=== PATIENT | male | born 1950 | race Hispanic/Latino ===

== ENCOUNTER → 2019-05-09 | Outpatient (CLI) | payer MEDICARE, OTHER ==
[~2019-05-09] MED LIST: CRESTOR PO; CRESTOR10 MG PO; GLIMEPIRIDE4 MG PO; JANUMET XR 1001 EACH PO; LOSARTAN POTAS100 MG PO; SYNTHROID100 MCG PO; TAMSULOSIN HCL0.4 MG PO
--- NOTE | 2019-05-09 11:47 | Diagnostic Imaging Report ---
MRI of the right shoulder without contrast. History: Shoulder pain. Decreased range of motion. Rotator cuff tear. Comparison: None Technique: Coronal PD FS, sagital PD FS, and axial PD and PD FS. Findings: Rotator cuff: Rotator cuff tendinosis with midsubstance degeneration and articular sided partial tearing involving the anterior fibers of the supraspinatus and infraspinatus tendons at the humeral insertion site. This is best seen on coronal image 13 through 18. Additionally, there is subscapularis tendinosis. The teres minor tendon is intact. There is mild rotator cuff muscle atrophy. Osseous acromion complex: Type II acromion with mild lateral downsloping. Moderate degenerative arthrosis at the acromioclavicular joint with undersurface spurring and narrowing of the supraspinatus tendon outlet. Glenohumeral joint: Circumferential degenerative type tearing of the labrum. Regions of full-thickness articular cartilage loss in the glenohumeral joint with joint space narrowing, subchondral cystic change and peripheral osteophytosis. Chronic appearing deformity with remodeling of the posterior glenoid best seen on axial image 15 through 17 and sagittal image 18 and 19. The humeral head is well-seated in the glenoid fossa. Small effusion and mild synovitis in the rotator interval and subcoracoid space. Scarring and thickening in the axillary pouch with increased signal intensity could be due to adhesive capsulitis or a capsular sprain. Biceps tendon: Interarticular biceps tendinosis with fraying of the biceps anchor. Other findings: Negative for muscle denervation or acute osseous fracture. Impression: Rotator cuff tendinosis with midsubstance degeneration and articular sided partial tearing involving the anterior fibers of the supraspinatus and infraspinatus tendons at the humeral insertion site. Scarring and thickening in the axillary pouch with increased signal intensity could be due to adhesive capsulitis or a capsular sprain. Degenerative arthrosis of the glenohumeral joint with chronic appearing deformity and remodeling of the posterior glenoid. Signed by: Dr. Markus Dubon M.D. on 05/09/2019 11:44 AM
== END ==
LOC: MRI 09:42
PROVIDERS: ATTEND Specialist
DX: S46.091A Other injury of muscle(s) and tendon(s) of the rotator cuff of right shoulder, initial encounter (principal)

== ENCOUNTER → 2019-06-07 | Day surgery (SDC) | payer MEDICARE, OTHER ==
[2019-06-01 15:14] LABS: BASOPHILS % 0.5 % (0.0-1.0); EOSINOPHILS # (AUTO) 0.1 (0.0-0.4); EOSINOPHILS % 1.9 % (0.0-6.0); HEMATOCRIT 44.8 % (38.2-49.6); HEMOGLOBIN 14.3 g/dL (14.0-18.0); LYMPHOCYTES # (AUTO) 1.8 (1.0-3.2); LYMPHOCYTES % 24.2 % (18.0-39.1); MEAN CORPUSCULAR HEMOGLOBIN 29.4 pg (28-32); MEAN CORPUSCULAR HGB CONC 31.9 g/dL (31-35); MEAN CORPUSCULAR VOLUME 92.2 fL (81-99); MONOCYTES # (AUTO) 0.6 (0.2-0.8); MONOCYTES % 8.3 % (4.4-11.3); NEUTROPHILS # (AUTO) 4.7 (2.1-6.9); NEUTROPHILS % 64.7 % (38.7-80.0); PLATELET COUNT 154 x10e3/uL (140-360); RED BLOOD COUNT 4.86 x10e6/uL (4.3-5.7); RED CELL DISTRIBUTION WIDTH 14.1 % (11.7-14.4)
--- NOTE | 2019-06-01 15:25 | Diagnostic Imaging Report ---
EXAMINATION: CHEST 2 VIEWS INDICATION: Pre-operative COMPARISON: None FINDINGS: LINES/TUBES:None LUNGS:The lungs are well-inflated. No focal consolidation or pulmonary edema. PLEURA:No pleural effusion or pneumothorax. MEDIASTINUM:The cardiomediastinal silhouette appears normal in size and shape. BONES/SOFT TISSUES:No acute osseous injury. ABDOMEN:No free air under the diaphragm. IMPRESSION: No focal pneumonia or pulmonary edema. Signed by: Eder Del Toro MD on 06/01/2019 3:22 PM
[2019-06-01 15:28] LABS: BLOOD UREA NITROGEN 21 mg/dL (7-26); BUN/CREATININE RATIO 22 (6-25); CALCIUM 10.1 mg/dL (8.4-10.2); CARBON DIOXIDE 25 mmol/L (22-29); CHLORIDE 103 mmol/L (98-107); CREATININE, SERUM 0.97 mg/dL (0.72-1.25); EST GLOMERULAR FILTRATION RATE > 60 ML/MIN (60-); GLUCOSE 115 mg/dL (74-118); SODIUM 137 mmol/L (136-145)
[~2019-06-07] MED LIST changes: +ACETAMINOPHEN/CODEINE 300MG - 30MG TAB ONE; +ACTOS15 MG PO; +CEFAZOLIN SOD 1 GM/NS 50ML 50 ML IV ONE; +DEXAMETHASONE SOD PHOS INJ 4 MG/ML VIAL ONE; +EPINEPHRINE HCL 1:1000 1ML 1 MG/ML AMP ONE; +FENTANYL CITRATE/PF 100MCG/2 ML INJ ONE; +HYDROGEN PEROXIDE 120 ML BTL ONE; +KETOROLAC TROMETHAMINE 30 MG/ML VIAL ONE; +LIDOCAINE 2% /EPINEPHRINE 20 ML SDV INJ ONE; +LIDOCAINE HCL 2% LOCAL INJ 5 ML SDV VIAL INJ ONE; +METHOTREXATE2.5 MG PO; +MIDAZOLAM HCL 2 MG/2 ML VIAL ONE; +ONDANSETRON HCL INJ 2MG/ML 2ML 2 MG/ML VIAL ONE; +PROPOFOL IV EMULSION 10 MG/ML 20 ML VIAL ONE; +ROCURONIUM BROMIDE 10 MG/ML 5ML VIAL ONE; +ROPIVACAINE 0.5% 5 MG/ML 30 ML SDV ONE; +SEVOFLURANE INHAL SOLN 250 ML PEN BTL ONE; +jardiance PO
--- OUTSIDE RECORDS SUMMARY | 2019-06-07 07:54 | XMS REPORT ---
Author Author [facility] Address Unknown Phone Unavailable Care Team Providers Care Basketball Player Name Role Phone SHUALEXANDER SHER Unavailable Unavailable Problems This patient has no known problems. Allergies, Adverse Reactions, Alerts This patient has no known allergies or adverse reactions. Medications This patient has no known medications. Results Test Description Test Time Test Comments Text Results Atomic Results Result Comments CHEST 2 VIEWS 2019-06-01 15:22:00 [place] [address] Patient Name: ALEXANDER GARCÍA JR MR #: [id number] : 1950 Age/Sex: 68/M Req #: [id number] Adm Physician: Ordered by: ALEXANDER IRELAND MD Report #: [id number] Location: OR Room/Bed: Procedure: [id number] DX/CHEST 2 VIEWS Exam Date: 06/01/19 Exam Time: 1505 REPORT STATUS: Signed EXAMINATION: CHEST 2 VIEWS INDICATION: Pre-operative COMPARISON: None FINDINGS: LINES/TUBES:None LUNGS:The lungs are well-inflated. No focal consolidation or pulmonary edema. PLEURA:No pleural effusion or pneumothorax. MEDIASTINUM:The cardiomediastinal silhouette appears normal in size and shape. BONES/SOFT TISSUES:No acute osseous injury. ABDOMEN:No free air under the diaphragm. IMPRESSION: No focal pneumonia or pulmonary edema. Signed by: Elise Whittington MD on 06/01/2019 3:22 PM Dictated By: ELISE WHITTINGTON MD 152 Transcribed By: BELLO DIETRICH on 06/01/19 1522 COPY TO: ALEXANDER IRELAND MD MRI SHOULDER RIGHT WO 2019-05-09 11:39:00 [place] [address] Patient Name: ALEXANDER GARCAÍ JR MR #: [id number] : 1950 Age/Sex: 68/M Req #: [id number] Adm Physician: Ordered by: ALEXANDER IRELAND MD Report #: [id number] Location: MRI Room/Bed: Procedure: [id number] MRI/MRI SHOULDER RIGHT WO Exam Date: Exam Time: REPORT STATUS: Signed MRI of the right shoulder without contrast. History: Shoulder pain. Decreased range of motion. Rotator cuff tear. Comparison: None Technique: Coronal PD FS, sagital PD FS, and axial PD and PD FS. Findings: Rotator cuff: Rotator cuff tendinosis with midsubstance degeneration and articular sided partial tearing involving the anterior fibers of the supraspinatus and infraspinatus tendons at the humeral insertion site. This is best seen on coronal image 13 through 18. Additionally, there is subscapularis tendinosis. The teres minor tendon is intact. There is mild rotator cuff muscle atrophy. Osseous acromion complex: Type II acromion with mild lateral downsloping. Moderate degenerative arthrosis at the acromioclavicular joint with undersurface spurring and narrowing of the supraspinatus tendon outlet. Glenohumeral joint: Circumferential degenerative type tearing of the labrum. Regions of full-thickness articular cartilage loss in the glenohumeral joint with joint space narrowing, subchondral cystic change and peripheral osteophytosis. Chronic appearing deformity with remodeling of the posterior glenoid best seen on axial image 15 through 17 and sagittal image 18 and 19. The humeral head is well-seated in the glenoid fossa. Small effusion and mild synovitis in the rotator interval and subcoracoid space. Scarring and thickening in the axillary pouch with increased signal intensity could be due to adhesive capsulitis or a capsular sprain. Biceps tendon: Interarticular biceps tendinosis with fraying of the biceps anchor. Other findings: Negative for muscle denervation or acute osseous fracture. Impression: Rotator cuff tendinosis with midsubstance degeneration and articular sided partial tearing involving the anterior fibers of the supraspinatus and infraspinatus tendons at the humeral insertion site. Scarring and thickening in the axillary pouch with increased signal intensity could be due to adhesive capsulitis or a capsular sprain. Degenerative arthrosis of the glenohumeral joint with chronic appearing deformity and remodeling of the posterior glenoid. Signed by: Dr. Markus Dubon M.D. on 05/09/2019 11:44 AM Dictated By: MARKUS DUBON MD, MD [id number] Transcribed By: AMARI on 05/09/19 1144 COPY TO: ALEXANDER IRELAND MD
[2019-06-07 13:30] VITALS: BP 137/72
--- NOTE | 2019-06-07 18:28 | Operative Report ---
DATE OF PROCEDURE: 06/07/2019 SURGEON: Sarabjit Ríos MD CARPET TILE LAYER: Abdulaziz Gil, certified PA. PREOPERATIVE DIAGNOSIS: Right shoulder rotator cuff tear with secondary adhesive capsulitis. POSTOPERATIVE DIAGNOSIS: Right shoulder rotator cuff tear with secondary adhesive capsulitis. PROCEDURE: Right shoulder manipulation under anesthesia, diagnostic arthroscopy, biceps tenotomy, subacromial decompression and rotator cuff repair. INDICATIONS: The patient is a 68-year-old gentleman, who has a long history of right shoulder problems. He has failed extensive conservative management under the care of other doctors. He presented wishing to proceed with more aggressive intervention. The risks and benefits of arthroscopy with repairs as indicated was explained. The fact that he has some underlying arthritic changes in his shoulder was explained. Realistic expectations were stressed. The patient stated he understood and wished to proceed. PROCEDURE IN DETAIL: The patient was brought to the operating room and placed under general anesthetic. He received prophylactic antibiotics and a regional block in the holding area. He was positioned on the shoulder table in the beach chair position. His right upper extremity was carefully manipulated when he was under anesthesia. Audible and palpable release of the inferior capsule was noted. The shoulder was then prepped and draped in a sterile manner. A standard posterior arthroscopy portal was established. The shoulder was insufflated with sterile saline and systematically inspected. Time was taken to clear the intra-articular hemarthrosis due to the manipulation under anesthesia. An anterior working portal was established in the rotator interval. The articular cartilage of the glenohumeral joint indeed had some grade 2 changes of chondromalacia. The biceps tendon was under tremendous tension as it exited the shoulder joint. A biceps tenotomy was performed with a pair of biting forceps. Marked inflammation was noted in the shoulder. This was debrided with a mechanical shaver that combined as an electrocauterize. The rotator cuff insertion was inspected. There was a near full-thickness tear at the anterior supraspinatus. After needle localization, this tear was further probed. This was noted to be about 80% of the thickness of the tendinous insertion. This was therefore completed with a pair of biting forceps. A lateral working portal allowed introduction of the shaver into the joint from the rotator cuff tear. The articular surface of the rotator cuff tear was then debrided back to more healthy tissue with a mechanical shaver. The scope was then placed into the subacromial space. A subacromial bursectomy and bone decompression were performed. The greater tuberosity was gently decorticated at the location of the tear. A FiberWire stitch was then placed in a horizontal mattress fashion through the rotator cuff tear. A bioabsorbable suture anchor was then used to secure these two stitches under tension to the superior lateral humeral cortex. Intraoperative pictures were taken throughout the case. The tendon repair was under appropriate tension with nice apposition of the tendon down to the bleeding cancellous bone. The arthroscopic instruments were removed. The portal incisions were closed with nylon stitches. A sterile bandage and an UltraSling were applied. Estimated blood loss was 10 mL. All needle and sponge counts were correct. Sarabjit Ríos MD DR/TIAN /[id number]
== END | disposition home or self-care (01) ==
LOC: OR 07:47
PROVIDERS: ATTEND Specialist
DX: S46.091A Other injury of muscle(s) and tendon(s) of the rotator cuff of right shoulder, initial encounter (principal); M75.01 Adhesive capsulitis of right shoulder; M94.211 Chondromalacia, right shoulder; E11.9 Type 2 diabetes mellitus without complications; E07.9 Disorder of thyroid, unspecified; R03.0 Elevated blood-pressure reading, without diagnosis of hypertension; X58.XXXA Exposure to other specified factors, initial encounter; Z01.810 Encounter for preprocedural cardiovascular examination; Z01.812 Encounter for preprocedural laboratory examination; Z01.818 Encounter for other preprocedural examination; Z79.84 Long term (current) use of oral hypoglycemic drugs; Z68.32 Body mass index [BMI] 32.0-32.9, adult
CPT/HCPCS: 29827; 36415 ×2; 71046; 80048; 82948; 85025; 93005; C1713 ×2; J0171; J0690; J1100; J1885; J2001 ×2; J2250; J2405; J2704; J2795; J3010